=== PATIENT | female | born 1980 | race Caucasian/White ===

== ENCOUNTER 2019-01-17 14:36 | Outpatient (CLI) | payer OTHER | END 2019-01-17 17:00 | disposition home or self-care (01) | LOC: MRI 14:36 | DX: M25.511 Pain in right shoulder (principal); M75.101 Unspecified rotator cuff tear or rupture of right shoulder, not specified as traumatic | CPT/HCPCS: 73221 ==

== ENCOUNTER 2019-01-21 14:24 | Outpatient (CLI) | payer OTHER | END 2019-01-21 17:00 | disposition home or self-care (01) | LOC: MRI 14:24 | DX: M54.2 Cervicalgia (principal) | CPT/HCPCS: 72141 ==

== ENCOUNTER 2019-10-16 16:22 | Emergency (ER) | payer OTHER ==
[~2019-10-16] VITALS: Ht 162.6 cm; Wt 70.3 kg
== END 2019-10-16 21:38 | disposition home or self-care (01) ==
LOC: ER 16:22
DX: J35.01 Chronic tonsillitis (principal)

== ENCOUNTER → 2022-07-09 | Outpatient (CLI) | payer OTHER | END | disposition home or self-care (01) | LOC: TOM 13:03 | PROVIDERS: ATTEND Surgery | DX: H90.A12 Conductive hearing loss, unilateral, left ear with restricted hearing on the contralateral side (principal) ==

== ENCOUNTER 2022-10-24 06:36 | Day surgery (SDC) | payer OTHER ==
[~2022-10-24] VITALS: Ht 162.6 cm; Wt 67.1 kg
[2022-10-24] MEDS ORDERED: CILOXAN5 ML OTIC (15:04)
[2022-10-24] MEDS ORDERED: CEPHALEXIN500 MG PO (15:04)
== END 2022-10-24 17:40 | disposition home or self-care (01) ==
LOC: CIR.AMB 06:36
PROVIDERS: ATTEND Otolaryngology Otology & Neurotology
DX: H80.91 Unspecified otosclerosis, right ear (principal); H90.11 Conductive hearing loss, unilateral, right ear, with unrestricted hearing on the contralateral side; Z20.822 Contact with and (suspected) exposure to COVID-19